=== PATIENT | female | born 1990 | race African-American/Black ===

== ENCOUNTER 2024-09-21 23:34 | Emergency (ER) | payer MEDICAID ==
[~2024-09-21] VITALS: Ht 170.2 cm; Wt 112.0 kg
[2024-09-21 23:46] VITALS: BP 136/72; PULSE 89; RESP 18; TEMP 37.1; O2SAT 98
[2024-09-22] MEDS ORDERED: IBUPROFEN 600MG TABLET PO ONE (00:15)
[2024-09-22] MEDS: LORAZEPAM 2MG/ML UD SYRINGE IM NR (00:59)
[2024-09-22] MEDS ORDERED: LORAZEPAM 2MG/ML UD SYRINGE IM NR (01:15)
== END 2024-09-22 03:00 ==
LOC: ER 23:34
DX: T59.3X3A Toxic effect of lacrimogenic gas, assault, initial encounter (principal); F10.129 Alcohol abuse with intoxication, unspecified; Y92.89 Other specified places as the place of occurrence of the external cause; Y90.9 Presence of alcohol in blood, level not specified
CPT/HCPCS: 99283; J2060